=== PATIENT | female | born 2000 | race Caucasian/White ===

== ENCOUNTER 2020-05-05 15:55 | Emergency (ER) | payer OTHER ==
--- NOTE | 2020-05-05 16:26 | ED Physician Documentation ---
History of Present Illness - Stated complaint Stated Complaint: DIZZINESS - Chief complaint Chief Complaint: Neuro - History of Present Illness Timing: Prior to arrival - Additonal information Additional information: 20-year-old female presents to the emergency department for evaluation of near syncope. She reports that this afternoon she was sitting on the couch watching TV when she began to feel lightheaded and felt as though she was going to pass out. She denies that she had a sensation of the room spinning. During this event she did not have chest pain or dyspnea but she began to get very anxious and per her words I started to panic. She reports that the sensation of feeling like she was going to faint lasted about 20 seconds. She then proceeded to the bathroom where she looked in the mirror and felt that her lower lip and tongue had turned blue. She does report a history of SVT as a child. It sounds like she may have underwent a procedure in which an accessory pathway was ablated. She states that intermittently since then she has had occasional palpitations but none recently and none today. She reports that last week she had right upper chest pain that she thought was may be a pulled muscle. At present she denies pleuritic chest pain. She denies abdominal pain, nausea, vomiting or dysuria. Denies the possibility of as her is deployed. Patient denies any personal history of blood clots or cancer. No history of recent immobilization. She denies unilateral leg pain or calf swelling. She is not taking any routinely prescribed medications though she reports that she did have gestational hypertension when she was but was able to transition off antihypertensive rather quickly. She does admit that she does not regularly check her blood pressure or get annual screenings. Review of Systems Constitutional: reports: Reviewed and negative Eyes: reports: Reviewed and negative Ears: reports: Reviewed and negative Nose: reports: Reviewed and negative Throat: reports: Reviewed and negative Cardiac: denies: Chest pain / pressure, Palpitations, Pedal edema, Calf pain Respiratory: denies: Dyspnea, Cough, Hemoptysis GI: denies: Abdominal Pain, Abdominal Swelling, Nausea, Vomiting : denies: Dysuria, Frequency Skin: reports: Reviewed and negative Musculoskeletal: reports: Reviewed and negative Neurologic: reports: Near syncope. denies: Difficulty speaking, Syncope, Seizure, Altered mental status, Unresponsive, Headache, Head injury, LOC Psychiatric: reports: Reviewed and negative Endocrine: reports: Reviewed and negative PD PAST MEDICAL HISTORY - Allergies Allergies/Adverse Reactions: Allergies Allergy/AdvReac Type Severity Reaction Status Date / Time No Known Drug Allergies Allergy Verified 05/05/20 16:03 PD ED PE EXPANDED - General General: Alert, No acute distress, Anxious - Neck Neck: No: Adenopathy, Limited ROM - Cardiac Cardiac: Regular Rate, Tachy, Normal pulses, Radial strong equal, Pedal strong equal, Cap refill < 2 sec - Respiratory Respiratory: Clear to ausultation mika. No: Distress, Labored - Abdomen Abdomen: Normal Bowel sounds. No: Tender to palpation - Extremities Extremities: Normal - Neuro Neuro: Alert and Oriented X 3, CNII-XII intact, Normal gait, Normal finger nose, Normal speech. No: Cerebellar nl - GCS Eye Opening: Spontaneous Motor: Obeys Commands Verbal: Oriented Total: 15 Results - Vitals Vitals: Vital Signs - 24 hr 05/05/20 05/05/20 05/05/20 15:58 17:26 17:30 Temperature 36.6 C 37 C Heart Rate 110 H 105 H 105 H Respiratory 16 14 14 Rate Blood Pressure 145/100 H 167/96 H 167/96 H O2 Saturation 100 98 100 Oxygen O2 Source Room air - EKG (time done) 1622 Rate: Rate (enter#) (120) Rhythm: Sinus tachycardia [place]: Normal Intervals: Normal [place] QRS: Normal Ischemia: Normal ST segments Compare to prior EKG: Old EKG unavailable Computer interpretation: Agree with computer - Labs Labs: Laboratory Tests 05/05/20 05/05/20 05/05/20 16:28 16:35 16:35 WBC 9.0 RBC 5.14 Hgb 13.5 Hct 42.6 MCV 82.9 MCH 26.3 L MCHC 31.7 L RDW 14.1 Plt Count 309 MPV 9.1 Neut # (Auto) 6.5 Lymph # (Auto) 1.9 [place] # (Auto) 0.4 Eos # (Auto) 0.1 Baso # (Auto) 0.1 Absolute Nucleated RBC 0.00 Nucleated RBC % 0.0 D-Dimer Sodium 135 Potassium 3.2 L Chloride 101 Carbon Dioxide 22 Anion Gap 12.0 BUN 15 Creatinine 0.6 Estimated GFR (MDRD) 125 Glucose 160 H Calcium 9.2 Total Bilirubin 0.4 AST 20 ALT 16 Alkaline Phosphatase 90 Total Protein 8.4 H Albumin 4.0 Globulin 4.4 H Albumin/Globulin Ratio 0.9 L Lipase 25 Urine Color YELLOW Urine Clarity CLEAR Urine pH 5.5 Ur Specific [place] 1.025 Urine Protein NEGATIVE Urine Glucose (UA) NEGATIVE Urine Ketones NEGATIVE Urine Occult Blood NEGATIVE Urine Nitrite NEGATIVE Urine Bilirubin NEGATIVE Urine Urobilinogen 0.2 (NORMAL) Ur Leukocyte Esterase TRACE H Urine RBC 0-5 Urine WBC 4-5 Ur Squamous Epith Cells MANY Squamous H Urine Bacteria Many H Ur Microscopic Review INDICATED Urine Culture Comments NOT INDICATED Urine HCG, Qual NEGATIVE 05/05/20 16:35 WBC RBC Hgb Hct MCV MCH MCHC RDW Plt Count MPV Neut # (Auto) Lymph # (Auto) [place] # (Auto) Eos # (Auto) Baso # (Auto) Absolute Nucleated RBC Nucleated RBC % D-Dimer 230.9 Sodium Potassium Chloride Carbon Dioxide Anion Gap BUN Creatinine Estimated GFR (MDRD) Glucose Calcium Total Bilirubin AST ALT Alkaline Phosphatase Total Protein Albumin Globulin Albumin/Globulin Ratio Lipase Urine Color Urine Clarity Urine pH Ur Specific [place] Urine Protein Urine Glucose (UA) Urine Ketones Urine Occult Blood Urine Nitrite Urine Bilirubin Urine Urobilinogen Ur Leukocyte Esterase Urine RBC Urine WBC Ur Squamous Epith Cells Urine Bacteria Ur Microscopic Review Urine Culture Comments Urine HCG, Qual - Rads (name of study) cxr Radiology: Final report received (no acute process) PD MEDICAL DECISION MAKING - ED course Complexity details: reviewed results, re-evaluated patient, considered differential, d/w patient ED course: 20-year-old female presents to the emergency department with a near syncopal episode that occurred this afternoon when sitting on the couch. She does have a history of SVT as a child in which she had an accessory pathway ablated. However she denies that she had palpitations during the syncopal event. On initial presentation her heart rate was fairly elevated sinus rhythm 1 -08 04, however after period of time of rest in the emergency department her heart rate declined into the 90s on monitor. Her labs were essentially normal including a troponin and a nonelevated D-dimer. CXR unremarkable. Her urine showed no signs of infection. I have discussed this ED visit at length with the patient and she feels ready for discharge home. We do note of a moderate blood pressure elevation which patient is attributing to anxiety however I have encouraged her to follow-up with her primary care doctor to determine if she should be started on blood pressure medication Departure - Departure Disposition: Home, Self Care Clinical Impression: Near syncope, High blood pressure determined by examination Condition: Stable Record reviewed to determine appropriate education?: Yes Instructions: ED Near Syncope Unkn Comments: Jhoana your labs, EKG and chest x-ray today were all essentially normal. The only finding of significance today is that your blood pressure is moderately elevated. Please discuss this finding with your primary care doctor to determine if you should be initiated on blood pressure medications. If at any point you have any fainting episodes, chest pain or shortness of breath and please return immediately to the ER
[2020-05-05] MEDS ORDERED: SODIUM CHLORIDE 0.9% 1,000 ML IV STA (16:41)
[2020-05-05 16:42] LABS: BASOPHILS # (AUTO) 0.1 10^3/uL (0.0-0.1); BASOPHILS % (AUTO) 0.7 %; EOSINOPHILS # (AUTO) 0.1 10^3/uL (0.0-0.7); HGB - HEMOGLOBIN 13.5 g/dL (12.0-16.0); LYMPHOCYTES # (AUTO) 1.9 10^3/uL (1.5-3.5); LYMPHOCYTES % (AUTO) 20.7 %; MEAN CORPUSCULAR HEMOGLOBIN 26.3 pg (27.0-31.0); MEAN CORPUSCULAR HGB CONC 31.7 g/dL (32.0-36.0); MEAN CORPUSCULAR VOLUME 82.9 fL (81.0-99.0); MEAN PLATELET VOLUME 9.1 fL (7.9-10.8); MONOCYTES # (AUTO) 0.4 10^3/uL (0.0-1.0); MONOCYTES % (AUTO) 4.8 %; NEUTROPHILS # (AUTO) 6.5 10^3/uL (1.5-6.6); NEUTROPHILS % (AUTO) 72.1 %; PLT - PLATELET COUNT 309 10^3/uL (130-450); RED BLOOD COUNT 5.14 10^6/uL (4.20-5.40); RED CELL DISTRIBUTION WIDTH 14.1 % (12.0-15.0)
[2020-05-05 16:46] LABS: BILIRUBIN,URINE NEGATIVE (NEGATIVE); GLUCOSE, URINE (UA) NEGATIVE (NEGATIVE); KETONES,URINE (UA) NEGATIVE (NEGATIVE); LEUKOCYTE ESTERASE, URINE TRACE (NEGATIVE); NITRITE,URINE NEGATIVE (NEGATIVE); OCCULT BLOOD,URINE NEGATIVE (NEGATIVE); PH,URINE 5.5 PH (5.0-7.5); PROTEIN,URINE NEGATIVE (NEGATIVE); UROBILINOGEN,URINE 0.2 (NORMAL) E.U./dL (NORMAL)
--- NOTE | 2020-05-05 16:50 | XRAY Report ---
PROCEDURE: Chest 1 View X-Ray INDICATIONS: near syncope TECHNIQUE: One view of the chest was acquired. COMPARISON: None FINDINGS: Surgical changes and devices: None. Lungs and pleura: No pleural effusions or pneumothorax. Lungs are clear. Mediastinum: Mediastinal contours appear normal. Heart size is normal. Bones and chest wall: No suspicious bony lesions. Overlying soft tissues appear unremarkable. IMPRESSION: No acute cardiopulmonary pathology. Reviewed by: Earl Harrison MD on 05/05/2020 3:48 PM AKDT Approved by: Earl Harrison MD on 05/05/2020 3:48 PM AKDT Station ID: [id number]
[2020-05-05 16:53] LABS: BACTERIA,URINE Many /HPF (None Seen); CLARITY,URINE CLEAR (CLEAR); HCG UR QUAL NEGATIVE; RBC,URINE 0-5 /HPF (0-5); SQUAMOUS EPITHELIAL CELL,UR MANY Squamous (<= Few)
[2020-05-05 16:54] LABS: ALBUMIN/GLOBULIN RATIO 0.9 (1.0-2.2); BILIRUBIN,TOTAL 0.4 mg/dL (0.2-1.0); CALCIUM 9.2 mg/dL (8.5-10.3); CREATININE 0.6 mg/dL (0.4-1.0); TOTAL PROTEIN 8.4 g/dL (6.7-8.2)
[2020-05-05 18:00] VITALS: BP 159/90
== END 2020-05-05 18:12 | disposition home or self-care (01) ==
LOC: ED 15:55
DX: R55 Syncope and collapse (principal); R03.0 Elevated blood-pressure reading, without diagnosis of hypertension
CPT/HCPCS: 36415; 71045; 80053; 81001; 81003; 81025; 83690; 84484; 85025; 85379; 87086; 93005; 96360; 99284

== ENCOUNTER 2020-08-01 19:44 | Emergency (ER) | payer OTHER ==
--- NOTE | 2020-08-01 20:05 | ED Physician Documentation ---
PD HPI CHEST PAIN - Stated complaint Stated Complaint: CP/LEFT ARM ACHE - Chief complaint Chief Complaint: Cardiac - History obtained from History obtained from: Patient - Additional information Additional information: 20-year-old woman with history of childhood SVT status post ablation at age 4 presents with achy left upper chest pain radiating to the left arm since last night. It is worse if she bends her arm but not worse with exertion. No significant shortness of breath. No pedal edema or calf pain. No history of DVT or PE. She is not on control. No recent travel. Review of Systems Constitutional: denies: Fever, Chills Cardiac: denies: Palpitations, Pedal edema, Calf pain Respiratory: denies: Dyspnea, Cough, Hemoptysis, Wheezing PD PAST MEDICAL HISTORY - Past Medical History Cardiovascular: Other - Past Surgical History Cardiovascular: Other - Present Medications Home Medications: Ambulatory Orders Medication Instructions Recorded Confirmed Multivitamin 1 tab PO DAILY 08/01/20 08/01/20 - Allergies Allergies/Adverse Reactions: Allergies Allergy/AdvReac Type Severity Reaction Status Date / Time No Known Drug Allergies Allergy Verified 08/01/20 19:48 - Social History Does the pt smoke?: No Smoking Status: Never smoker Does the pt drink ETOH?: No Does the pt have substance abuse?: No PD ED PE NORMAL - Vitals Vital signs reviewed: Yes - General General: Alert and oriented X 3, No acute distress - HEENT HEENT: PERRL, EOMI - Neck Neck: Supple, no meningeal sign, No bony TTP - Cardiac Cardiac: RRR, No murmur - Respiratory Respiratory: No respiratory distress, Clear bilaterally - Abdomen Abdomen: Non tender - Derm Derm: Normal color, Warm and dry - Extremities Extremities: No edema, No calf tenderness / cord - Neuro Neuro: Alert and oriented X 3, Normal speech Results - Vitals Vitals: Vital Signs - 24 hr 08/01/20 08/01/20 19:48 20:44 Temperature 36.5 C 36.6 C Heart Rate 93 74 Respiratory 16 20 Rate Blood Pressure 144/100 H 125/82 H O2 Saturation 99 100 Oxygen O2 Source Room air - EKG (time done) 194 Rate: Rate (enter#) (93) Rhythm: NSR [place]: Normal Intervals: Normal [place] QRS: Normal Ischemia: Normal ST segments Computer interpretation: Agree with computer - Labs Labs: Laboratory Tests 08/01/20 08/01/20 08/01/20 20:05 20:05 20:05 WBC 9.7 RBC 4.89 Hgb 13.1 Hct 41.4 MCV 84.7 MCH 26.8 L MCHC 31.6 L RDW 14.2 Plt Count 313 MPV 9.0 Neut # (Auto) 6.5 Lymph # (Auto) 2.4 [place] # (Auto) 0.6 Eos # (Auto) 0.1 Baso # (Auto) 0.1 Absolute Nucleated RBC 0.00 Nucleated RBC % 0.0 Sodium 137 Potassium 3.9 Chloride 107 Carbon Dioxide 22 Anion Gap 8.0 BUN 13 Creatinine 0.7 Estimated GFR (MDRD) 105 Glucose 116 H Calcium 8.9 Total Bilirubin 0.5 AST 18 ALT 14 Alkaline Phosphatase 83 Troponin I High Sens 3.2 Total Protein 7.7 Albumin 4.0 Globulin 3.7 Albumin/Globulin Ratio 1.1 Lipase 25 PD MEDICAL DECISION MAKING - ED course ED course: HEART score 1 PERC neg Departure - Departure Disposition: 01 Home, Self Care Clinical Impression: Atypical chest pain Condition: Good Record reviewed to determine appropriate education?: Yes Instructions: ED Chest Pain Atypical Unkn Cause Comments: Nothing concerning on EKG or labs regarding this chest pain, that said I do recommend continuing efforts to obtain echocardiography as ordered by your supervisor dry cleaning in follow-up. Return for new or worsening symptoms. Discharge Date/Time: 08/01/20 20:48
[2020-08-01 20:15] LABS: BASOPHILS # (AUTO) 0.1 10^3/uL (0.0-0.1); BASOPHILS % (AUTO) 0.5 %; EOSINOPHILS # (AUTO) 0.1 10^3/uL (0.0-0.7); EOSINOPHILS % (AUTO) 1.3 %; HGB - HEMOGLOBIN 13.1 g/dL (12.0-16.0); LYMPHOCYTES # (AUTO) 2.4 10^3/uL (1.5-3.5); LYMPHOCYTES % (AUTO) 25.1 %; MEAN CORPUSCULAR HEMOGLOBIN 26.8 pg (27.0-31.0); MEAN CORPUSCULAR HGB CONC 31.6 g/dL (32.0-36.0); MEAN CORPUSCULAR VOLUME 84.7 fL (81.0-99.0); MONOCYTES # (AUTO) 0.6 10^3/uL (0.0-1.0); MONOCYTES % (AUTO) 6.2 %; NEUTROPHILS # (AUTO) 6.5 10^3/uL (1.5-6.6); NEUTROPHILS % (AUTO) 66.7 %; PLT - PLATELET COUNT 313 10^3/uL (130-450); RED BLOOD COUNT 4.89 10^6/uL (4.20-5.40); RED CELL DISTRIBUTION WIDTH 14.2 % (12.0-15.0); WHITE BLOOD COUNT 9.7 x10^3/uL (4.8-10.8)
[2020-08-01 20:28] LABS: ALBUMIN/GLOBULIN RATIO 1.1 (1.0-2.2); BILIRUBIN,TOTAL 0.5 mg/dL (0.2-1.0); CALCIUM 8.9 mg/dL (8.5-10.3); CREATININE 0.7 mg/dL (0.4-1.0); TOTAL PROTEIN 7.7 g/dL (6.7-8.2)
[2020-08-01 20:46] VITALS: BP 125/82
== END 2020-08-01 20:48 | disposition home or self-care (01) ==
LOC: ED 19:44
DX: R07.89 Other chest pain (principal); Z86.79 Personal history of other diseases of the circulatory system
CPT/HCPCS: 36415; 80053; 83690; 84484; 85025; 93005; 99284

== ENCOUNTER 2020-08-24 13:00 | Emergency (ER) | payer OTHER ==
[2020-08-24] MEDS ORDERED: SODIUM CHLORIDE 0.9% 1,000 ML IV STA (13:21)
--- NOTE | 2020-08-24 13:32 | ED Physician Documentation ---
PD HPI ABD PAIN - Stated complaint Stated Complaint: L ABDOMINAL PX - Chief complaint Chief Complaint: Abd Pain - History obtained from History obtained from: Patient - History of Present Illness Timing - onset: How many days ago (10) Timing - duration: Days (10) Timing - details: Gradual onset, Still present, Waxing and waning Quality: Cramping, Sharp, Pain Location: LLQ Radiation: Lower back Improved by: Other (nothing) Worsened by: Position, Palpation Associated symptoms: Diarrhea, Loss of appetite. No: Nausea, Vomiting, Hematemesis, Constipation Similar symptoms before: Has not had sx before Recently seen: Not recently seen - Additional information Additional information: 20 y/o female previously well has developed pain in the left lower quadrant of the abdomen that she describes as a cramping pain like gas. This was at first better with gas-x but now the patient has developed some funny diarrhea and persistence of pain. She has not had fever or vomiting with this. She does describe early satiety. Review of Systems Constitutional: denies: Fever Eyes: denies: Decreased vision Ears: denies: Ear pain Nose: denies: Congestion Throat: denies: Sore throat Cardiac: denies: Chest pain / pressure, Palpitations Respiratory: denies: Dyspnea, Cough GI: reports: Abdominal Pain, Diarrhea. denies: Nausea, Vomiting : denies: Dysuria, Frequency Skin: denies: Rash Musculoskeletal: denies: Neck pain, Back pain, Extremity pain Neurologic: denies: Generalized weakness, Focal weakness, Numbness PD PAST MEDICAL HISTORY - Past Medical History Cardiovascular: Other - Past Surgical History Cardiovascular: Other - Present Medications Home Medications: Ambulatory Orders Medication Instructions Recorded Confirmed Multivitamin 1 tab PO DAILY 08/01/20 08/24/20 Sulfamethox/Trimeth 800/160 1 each PO BID #10 tab 08/24/20 [Bactrim Ds] - Allergies Allergies/Adverse Reactions: Allergies Allergy/AdvReac Type Severity Reaction Status Date / Time No Known Drug Allergies Allergy Verified 08/24/20 13:04 - Social History Does the pt smoke?: No Smoking Status: Never smoker Does the pt drink ETOH?: No Does the pt have substance abuse?: No - Immunizations Immunizations are current?: Yes PD ED PE NORMAL - Vitals Vital signs reviewed: Yes (hypertensive ) - General General: Alert and oriented X 3, No acute distress, Well developed/nourished - HEENT HEENT: Atraumatic, PERRL, EOMI - Neck Neck: Supple, no meningeal sign, No bony TTP - Cardiac Cardiac: RRR, No murmur - Respiratory Respiratory: No respiratory distress, Clear bilaterally - Abdomen Abdomen: Normal bowel sounds, Soft, Non distended, No organomegaly, Other (obese with LLQ tenderness to palpation no garding referred tenderness or rebound tendernes. ) - Back Back: No CVA TTP, No spinal TTP - Derm Derm: Normal color, Warm and dry, No rash - Extremities Extremities: No deformity, No edema - Neuro Neuro: Alert and oriented X 3, trail maintenance worker 2-12 intact, No motor deficit, No sensory deficit, Normal speech Eye Opening: Spontaneous Motor: Obeys Commands Verbal: Oriented GCS Score: 15 - Psych Psych: Normal mood, Normal affect Results - Vitals Vitals: Vital Signs - 24 hr 08/24/20 13:05 Temperature 37 C Heart Rate 89 Respiratory 18 Rate Blood Pressure 153/118 H O2 Saturation 98 Oxygen O2 Source Room air - Labs Labs: Laboratory Tests 08/24/20 08/24/20 08/24/20 13:15 13:25 13:25 WBC 8.5 RBC 5.09 Hgb 13.7 Hct 42.8 MCV 84.1 MCH 26.9 L MCHC 32.0 RDW 13.8 Plt Count 336 MPV 8.7 Neut # (Auto) 5.5 Lymph # (Auto) 2.3 [place] # (Auto) 0.6 Eos # (Auto) 0.1 Baso # (Auto) 0.1 Absolute Nucleated RBC 0.00 Nucleated RBC % 0.0 Sodium 136 Potassium 4.0 Chloride 104 Carbon Dioxide 24 Anion Gap 8.0 BUN 11 Creatinine 0.5 Estimated GFR (MDRD) 154 Glucose 97 Calcium 9.3 Total Bilirubin 0.6 AST 19 ALT 15 Alkaline Phosphatase 89 Total Protein 8.2 Albumin 4.1 Globulin 4.1 Albumin/Globulin Ratio 1.0 Lipase 24 Urine Color YELLOW Urine Clarity [place] Urine pH 6.0 Ur Specific [place] 1.020 Urine Protein NEGATIVE Urine Glucose (UA) NEGATIVE Urine Ketones NEGATIVE Urine Occult Blood NEGATIVE Urine Nitrite NEGATIVE Urine Bilirubin NEGATIVE Urine Urobilinogen 0.2 (NORMAL) Ur Leukocyte Esterase MODERATE H Urine RBC None Seen Urine WBC >25 H Ur Squamous Epith Cells MANY Squamous H Urine Bacteria Few Ur Microscopic Review INDICATED Urine Culture Comments NOT INDICATED Urine HCG, Qual NEGATIVE - Rads (name of study) CT ab/pel w Radiology: Prelim report reviewed (Impression: 1. CT abdomen and pelvis without acute abnormalities. 2. Normal appendix. 3. Fat-containing umbilical hernia without acute inflammation), EMP read indepedently, See rad report PD MEDICAL DECISION MAKING - ED course Complexity details: reviewed old records, reviewed results, re-evaluated patient, considered differential, d/w patient ED course: 20-year-old female with left lower quadrant abdominal cramping for the past week has a normal-appearing CT scan of the abdomen pelvis and has greater than 25 white blood cells per high-power field in her urine. She indicates that she had a urinalysis done about a month ago and was placed on some nitrofurantoin and did not feel that there is any change in her cloudy urine at that time. She did not have symptoms specific to urinary tract infection at the time and this was found on the routine visit for laboratory evaluation. She now has symptoms and we will treat with Septra. Here in the emergency department she is given a liter of saline following her contrast CT scan. The urine did not make the grade for culture as there are too many squamous cells. We will do empiric treatment and the patient will need follow-up for repeat urinalysis to verify resolution of infection as she does not have symptoms that are specific to urinary tract Departure - Departure Disposition: 01 Home, Self Care Clinical Impression: Urinary tract infection Qualifiers: Urinary tract infection type: acute cystitis Hematuria presence: without hematuria Qualified Code(s): N30.00 - Acute cystitis without hematuria Condition: Stable Instructions: ED UTI Cystitis Female Follow-Up: Your, doctor [Other] Prescriptions: Sulfamethox/Trimeth 800/160 [Bactrim Ds] 1 each PO BID #10 tab Comments: We will not be able to culture the urine specimen we have today as her to meet squamous cells in it and the recommendation is to follow-up with your primary care doctor in 1 week for a repeat urinalysis to make certain that the infection has resolved.
[2020-08-24] MEDS ORDERED: IOVERSOL 320 100 ML VIAL IVP ONE ×2 (13:35→13:58)
[2020-08-24 13:36] LABS: BILIRUBIN,URINE NEGATIVE (NEGATIVE); GLUCOSE, URINE (UA) NEGATIVE (NEGATIVE); KETONES,URINE (UA) NEGATIVE (NEGATIVE); LEUKOCYTE ESTERASE, URINE MODERATE (NEGATIVE); NITRITE,URINE NEGATIVE (NEGATIVE); OCCULT BLOOD,URINE NEGATIVE (NEGATIVE); PROTEIN,URINE NEGATIVE (NEGATIVE); UROBILINOGEN,URINE 0.2 (NORMAL) E.U./dL (NORMAL)
[2020-08-24 13:37] LABS: BASOPHILS # (AUTO) 0.1 10^3/uL (0.0-0.1); BASOPHILS % (AUTO) 0.7 %; EOSINOPHILS # (AUTO) 0.1 10^3/uL (0.0-0.7); EOSINOPHILS % (AUTO) 1.1 %; HGB - HEMOGLOBIN 13.7 g/dL (12.0-16.0); LYMPHOCYTES # (AUTO) 2.3 10^3/uL (1.5-3.5); LYMPHOCYTES % (AUTO) 26.6 %; MEAN CORPUSCULAR HEMOGLOBIN 26.9 pg (27.0-31.0); MEAN CORPUSCULAR VOLUME 84.1 fL (81.0-99.0); MEAN PLATELET VOLUME 8.7 fL (7.9-10.8); MONOCYTES # (AUTO) 0.6 10^3/uL (0.0-1.0); MONOCYTES % (AUTO) 6.7 %; NEUTROPHILS # (AUTO) 5.5 10^3/uL (1.5-6.6); NEUTROPHILS % (AUTO) 64.7 %; PLT - PLATELET COUNT 336 10^3/uL (130-450); RED BLOOD COUNT 5.09 10^6/uL (4.20-5.40); RED CELL DISTRIBUTION WIDTH 13.8 % (12.0-15.0); WHITE BLOOD COUNT 8.5 x10^3/uL (4.8-10.8)
[2020-08-24 13:41] LABS: CLARITY,URINE HAZY (CLEAR); HCG UR QUAL NEGATIVE
[2020-08-24 13:42] LABS: BACTERIA,URINE Few /HPF (None Seen); RBC,URINE None Seen /HPF (0-5); SQUAMOUS EPITHELIAL CELL,UR MANY Squamous (<= Few)
[2020-08-24 13:49] LABS: ALBUMIN 4.1 g/dL (3.2-5.5); BILIRUBIN,TOTAL 0.6 mg/dL (0.2-1.0); CALCIUM 9.3 mg/dL (8.5-10.3); CREATININE 0.5 mg/dL (0.4-1.0); TOTAL PROTEIN 8.2 g/dL (6.7-8.2)
--- NOTE | 2020-08-24 14:15 | CT Report ---
PROCEDURE: Abdomen/Pelvis W INDICATIONS: LLQ pain CONTRAST: IV CONTRAST: Optiray 320 ml: 100 PO CONTRAST: *NO PO CONTRAST TECHNIQUE: After the administration of weight appropriate dose of intravenous contrast, 5 mm thick sections acqu ired from the diaphragms to the symphysis. 5 mm thick coronal and sagittal reformats were acquired. For radiation dose reduction, the following was used: automated exposure control, adjustment of mA and/or kV according to patient size. COMPARISON: None. FINDINGS: Image quality: Excellent. ABDOMEN: Lung bases: Lung bases are clear. Heart size is normal. Solid organs: Liver and spleen are normal in size and enhancement. Gallbladder is normal. No perich olecystic inflammatory changes. Biliary system is non dilated. Pancreas enhances normally. No adre nal nodules. Kidneys demonstrate normal size and enhancement, without hydronephrosis. Peritoneum and bowel: Bowel loops demonstrate normal wall thickness and caliber. Normal appendix. No free fluid or air. Nodes and vessels: No retroperitoneal or mesenteric adenopathy by size criteria. Aorta and inferior vena cava are normal in size. Miscellaneous: Small fat-containing umbilical hernia without acute inflammation. PELVIS: Genitourinary: Bladder wall thickness is normal. Miscellaneous: No inguinal hernias or adenopathy. Bones: No suspicious bony lesions. No acute vertebral body compression fractures. IMPRESSION: 1. CT abdomen and pelvis without acute abnormalities. 2. Normal appendix. 3. Fat-containing umbilical hernia without acute inflammation. Reviewed by: Ahsan Kraus MD on 08/24/2020 2:13 PM PST Approved by: Ahsan Kraus MD on 08/24/2020 2:13 PM PST Station ID: [id number]
[2020-08-24 14:53] VITALS: BP 155/100
== END 2020-08-24 14:52 | disposition home or self-care (01) ==
LOC: ED 13:00
DX: N30.00 Acute cystitis without hematuria (principal); R19.7 Diarrhea, unspecified; K42.9 Umbilical hernia without obstruction or gangrene
CPT/HCPCS: 36415; 74177; 80053; 81001; 81025; 83690; 85025; 99284; Q9967; 81003; 87086

== ENCOUNTER 2020-10-08 13:30 | Emergency (ER) | payer OTHER ==
[2020-10-08] MEDS ORDERED: LIDOCAINE-EPINEPH-TETRACAINE 3 ML SYRINGE TOP STA (13:51)
--- NOTE | 2020-10-08 13:53 | ED Physician Documentation ---
History of Present Illness - Stated complaint Stated Complaint: LIP LAC - Chief complaint Chief Complaint: Laceration - Additonal information Additional information: 20-year-old female presents emergency department for evaluation of an inner lower lip laceration sustained when her toddler accidentally head butted her. Tetanus is up-to-date. Bleeding is controlled with pressure. Laceration does not extend through the vermilion or to the external lip. Review of Systems Constitutional: reports: Reviewed and negative Eyes: reports: Reviewed and negative Ears: reports: Reviewed and negative Nose: reports: Reviewed and negative Throat: reports: Reviewed and negative Cardiac: reports: Reviewed and negative Respiratory: reports: Reviewed and negative GI: reports: Reviewed and negative Skin: reports: Laceration (s) PD PAST MEDICAL HISTORY - Past Medical History Cardiovascular: Other - Past Surgical History Cardiovascular: Other - Present Medications Home Medications: Ambulatory Orders Medication Instructions Recorded Confirmed Multivitamin 1 tab PO DAILY 08/01/20 10/08/20 - Allergies Allergies/Adverse Reactions: Allergies Allergy/AdvReac Type Severity Reaction Status Date / Time No Known Drug Allergies Allergy Verified 10/08/20 13:38 - Social History Does the pt smoke?: No Smoking Status: Never smoker Does the pt drink ETOH?: No Does the pt have substance abuse?: No - Immunizations Immunizations are current?: Yes PD ED PE EXPANDED - General General: Alert, No acute distress - HEENT HEENT: Lip laceration (1.5 cm lower lip midline vertical inner mucosal laceration with fatty tissue exposed) Results - Vitals Vitals: Vital Signs - 24 hr 10/08/20 13:36 Temperature 36.4 C L Heart Rate 70 Respiratory 20 Rate Blood Pressure 156/111 H O2 Saturation 96 Oxygen O2 Source Room air Procedures - Laceration (location) lip laceration Length in cm: 1.5 Wound type: Linear, Into subcut fat Neurovascular status: Sensory intact, Motor intact Anesthesia: LET Wound preparation: Irrigated copiously NS Skin layer closure: Interrupted (2), Other (absorbable vicryl 5.0) Other: Patient tolerated well, No complications, Tetanus UTD PD MEDICAL DECISION MAKING - ED course Complexity details: re-evaluated patient, d/w patient ED course: 18-year-old female presents emergency department with a 1.5 cm vertical lower lip inner mucosal laceration sustained when her child accidentally head butted her. Wound was easily closed with 2 absorbable sutures. Routine wound care emergent return precautions discussed Departure - Departure Disposition: 01 Home, Self Care Clinical Impression: Laceration of lip Qualifiers: Encounter type: initial encounter Qualified Code(s): S01.511A - Laceration without foreign body of lip, initial encounter Condition: Stable Record reviewed to determine appropriate education?: Yes Comments: Jhoana we closed the laceration with 2 absorbable sutures. These will fall out over the next 5 days. You can gently rinse your mouth with warm salt water twice daily. He states the lacerations are not likely to get infected however if you have erythema of the lip, milky drainage or increased pain or concerns of infection return immediately to the ER.
[2020-10-08 14:32] VITALS: BP 140/90
== END 2020-10-08 14:31 | disposition home or self-care (01) ==
LOC: ED 13:30
DX: S01.511A Laceration without foreign body of lip, initial encounter (principal); W50.0XXA Accidental hit or strike by another person, initial encounter
CPT/HCPCS: 12011; 99282

== ENCOUNTER 2021-12-05 08:00 | Outpatient (CLI) | payer OTHER ==
[2021-12-05 20:35] LABS: CHLAMYDIA TRACHOMATIS DNA NEGATIVE (NEGATIVE); NEISSERIA GONORRHOEAE DNA NEGATIVE (NEGATIVE)
[2021-12-05 22:06] LABS: BACTERIAL VAGINOSIS DNA NEGATIVE (NEGATIVE); CANDIDA GLABRATA DNA NEGATIVE (NEGATIVE); CANDIDA GROUP DNA NEGATIVE (NEGATIVE); CANDIDA KRUSEI DNA NEGATIVE (NEGATIVE); TRICHOMONAS VAGINALIS DNA NEGATIVE (NEGATIVE)
== END 2021-12-05 08:01 | disposition home or self-care (01) ==
LOC: LAB.N 08:00
PROVIDERS: ATTEND Physician Assistant Medical
DX: R30.0 Dysuria (principal)
CPT/HCPCS: 81514; 87086; 87491; 87591; 87661

== ENCOUNTER 2022-05-08 17:23 | Emergency (ER) | payer OTHER ==
--- OUTSIDE RECORDS SUMMARY | 2022-05-08 17:40 | EXTERNAL MEDICAL SUMMARY RPT | Continuity of Care Document ---
:2000 Author Organization [facility] Address [address] [place] [address] Phone Allergies No information. Encounters No information. Functional Status No information. Immunizations No information. Medications No information. Problems No information. Procedures No information. Results/Labs test date author facility value unit interpret ation Result panel 1 (unknown) (no (unknown) (unknown) (no value) (units (unk nown) date) unknown) (unknown) (no (unknown) (unknown) 05/07/22 (units (unkno wn) date) unknown) (unknown) (no (unknown) (unknown) [id number] (units (unkno wn) date) unknown) (unknown) (no (unknown) (unknown) Age/Sex: 22 / F (units (unknown) date) Date of Service: unknown) (unknown) (no (unknown) (unknown) Allergies (units (unkn own) date) unknown) (unknown) (no (unknown) (unknown) [facility] (units (unknown) date) Medicine unknown) (unknown) (no (unknown) (unknown) [place], [place] (units ( unknown) date) [id number] unknown) (unknown) (no (unknown) (unknown) Assessment + (units (u nknown) date) Plan unknown) (unknown) (no (unknown) (unknown) Attending Dr: (units ( unknown) date) Samantha Watson unknown) TREASURY DIRECTOR (unknown) (no (unknown) (unknown) control (units ( unknown) date) #21 tabs 11/25/20 unknown) [Rx Confirmed 05/07/22] (unknown) (no (unknown) (unknown) : 2000 (units (unknown) date) Acct:[id number] unknown) (unknown) (no (unknown) (unknown) Dept at (units (unkno wn) date) . unknown) (unknown) (no (unknown) (unknown) Documented By: (units (unknown) date) WalterSamantha unknown) [facility] 05/07/22 1525 (unknown) (no (unknown) (unknown) Draft (units (unkno wn) date) unknown) (unknown) (no (unknown) (unknown) Family Practice (units (unknown) date) Office Visit unknown) (unknown) (no (unknown) (unknown) Intake Note: (units (u nknown) date) unknown) (unknown) (no (unknown) (unknown) Intake performed (units (unknown) date) by: unknown) Vladimir Reyes (unknown) (no (unknown) (unknown) Intake (units (unkno wn) date) unknown) (unknown) (no (unknown) (unknown) Intake- Clincial (units (unknown) date) Staff unknown) (unknown) (no (unknown) (unknown) Loc: [facility] (units (unkno wn) date) unknown) (unknown) (no (unknown) (unknown) Medications (units (un known) date) unknown) (unknown) (no (unknown) (unknown) No Known Drug (units ( unknown) date) Allergies Allergy unknown) (Unverified 05/07/22 15:26) (unknown) (no (unknown) (unknown) Orders (units (unkno wn) date) unknown) (unknown) (no (unknown) (unknown) Orders: (units (unkno wn) date) unknown) (unknown) (no (unknown) (unknown) PFSH (units (unkno wn) date) unknown) (unknown) (no (unknown) (unknown) POC Strep screen (units (unknown) date) Group A Today unknown) J02.9 - Acute pharyngitis, unspecified (unknown) (no (unknown) (unknown) Patient: (units (unkno wn) date) Jhoana Berger L unknown) MR#: [id number] (unknown) (no (unknown) (unknown) Pt presents with (units (unknown) date) a sore throat for unknown) 2 days. Has concern for strep. Has had fever, (unknown) (no (unknown) (unknown) Reason For Visit (units (unknown) date) unknown) (unknown) (no (unknown) (unknown) Signed By: (units (unk nown) date) unknown) (unknown) (no (unknown) (unknown) Smoking Status: (units (unknown) date) Never smoker unknown) (unknown) (no (unknown) (unknown) This note may (units ( unknown) date) have been all or unknown) partially generated using voice recognition (unknown) (no (unknown) (unknown) Throat Culture (units (unknown) date) Today J02.9 - unknown) Acute pharyngitis, unspecified (unknown) (no (unknown) (unknown) Tobacco + (units (unkn own) date) Substance Use unknown) (unknown) (no (unknown) (unknown) Tobacco Status (units (unknown) date) unknown) (unknown) (no (unknown) (unknown) Visit Reasons: (units (unknown) date) S/T x 2D, concern unknown) for strep (unknown) (no (unknown) (unknown) body aches, and (units (unknown) date) chills. unknown) (unknown) (no (unknown) (unknown) have occurred. (units (unknown) date) If there are any unknown) questions, please contact the Medical Records (unknown) (no (unknown) (unknown) may occur. (units (unk nown) date) Occasional unknown) wrong-word or 'sound-alike' substitutions may have (unknown) (no (unknown) (unknown) norethindrone (units ( unknown) date) acetate 1.5 unknown) mg-ethinyl estradiol 30 mcg tablet 1 tab PO DAILY (unknown) (no (unknown) (unknown) occurred due to (units (unknown) date) the inherent unknown) limitations of voice recognition software. Please (unknown) (no (unknown) (unknown) read the note (units ( unknown) date) carefully and unknown) recognize, using context, where these substitutions (unknown) (no (unknown) (unknown) software. (units (unkn own) date) Although every unknown) effort is made to edit content, refractory worker errors Result panel 2 (unknown) (no (unknown) (unknown) (no value) (units (unk nown) date) unknown) (unknown) (no (unknown) (unknown) 05/07/22 (units (unkno wn) date) unknown) (unknown) (no (unknown) (unknown) 15:33 (units (unkno wn) date) unknown) (unknown) (no (unknown) (unknown) [id number] (units (unkno wn) date) unknown) (unknown) (no (unknown) (unknown) Age/Sex: 22 / F (units (unknown) date) Date of Service: unknown) (unknown) (no (unknown) (unknown) Allergies (units (unkn own) date) unknown) (unknown) (no (unknown) (unknown) [facility] (units (unknown) date) Medicine unknown) (unknown) (no (unknown) (unknown) [place], [place] (units ( unknown) date) [id number] unknown) (unknown) (no (unknown) (unknown) Assessment + (units (u nknown) date) Plan unknown) (unknown) (no (unknown) (unknown) Attending Dr: (units ( unknown) date) Samantha Watson unknown) TREASURY DIRECTOR (unknown) (no (unknown) (unknown) BMI 41.1 (units (unkno wn) date) unknown) (unknown) (no (unknown) (unknown) BP 134/90 (units (unkn own) date) unknown) (unknown) (no (unknown) (unknown) control (units ( unknown) date) #21 tabs 11/25/20 unknown) [Rx Confirmed 05/07/22] (unknown) (no (unknown) (unknown) Blood Pressure (units (unknown) date) Location Lt unknown) brachial (unknown) (no (unknown) (unknown) : 2000 (units (unknown) date) Acct:[id number] unknown) (unknown) (no (unknown) (unknown) Dept at (units (unkno wn) date) . unknown) (unknown) (no (unknown) (unknown) Documented By: (units (unknown) date) Samantha Watson unknown) TREASURY DIRECTOR 05/07/22 1525 (unknown) (no (unknown) (unknown) Draft (units (unkno wn) date) unknown) (unknown) (no (unknown) (unknown) Family Practice (units (unknown) date) Office Visit unknown) (unknown) (no (unknown) (unknown) Height 5 ft 6 in (units (unknown) date) unknown) (unknown) (no (unknown) (unknown) Intake Note: (units (u nknown) date) unknown) (unknown) (no (unknown) (unknown) Intake performed (units (unknown) date) by: unknown) Vladimir Reyes (unknown) (no (unknown) (unknown) Intake (units (unkno wn) date) unknown) (unknown) (no (unknown) (unknown) Intake- Clincial (units (unknown) date) Staff unknown) (unknown) (no (unknown) (unknown) Loc: [facility] (units (unkno wn) date) unknown) (unknown) (no (unknown) (unknown) Medications (units (un known) date) unknown) (unknown) (no (unknown) (unknown) No Known Drug (units ( unknown) date) Allergies Allergy unknown) (Unverified 05/07/22 15:26) (unknown) (no (unknown) (unknown) Orders (units (unkno wn) date) unknown) (unknown) (no (unknown) (unknown) Orders: (units (unkno wn) date) unknown) (unknown) (no (unknown) (unknown) Oxygen Delivery (units (unknown) date) Method room air unknown) (unknown) (no (unknown) (unknown) PFSH (units (unkno wn) date) unknown) (unknown) (no (unknown) (unknown) POC Strep screen (units (unknown) date) Group A Today unknown) J02.9 - Acute pharyngitis, unspecified (unknown) (no (unknown) (unknown) Patient: (units (unkno wn) date) Jhoana Berger unknown) MR#: [id number] (unknown) (no (unknown) (unknown) Position Sitting (units (unknown) date) unknown) (unknown) (no (unknown) (unknown) Pt presents with (units (unknown) date) a sore throat for unknown) 2 days. Has concern for strep. Has had fever, (unknown) (no (unknown) (unknown) Pulse 102 H (units (un known) date) unknown) (unknown) (no (unknown) (unknown) Pulse Oximetry (units (unknown) date) (%) 98 unknown) (unknown) (no (unknown) (unknown) Pulse Source (units (u nknown) date) Monitor unknown) (unknown) (no (unknown) (unknown) Reason For Visit (units (unknown) date) unknown) (unknown) (no (unknown) (unknown) Respiration 18 (units (unknown) date) unknown) (unknown) (no (unknown) (unknown) Signed By: (units (unk nown) date) unknown) (unknown) (no (unknown) (unknown) Smoking Status: (units (unknown) date) Never smoker unknown) (unknown) (no (unknown) (unknown) Temp 99.8 F H (units ( unknown) date) unknown) (unknown) (no (unknown) (unknown) Temp Source Oral (units (unknown) date) unknown) (unknown) (no (unknown) (unknown) This note may (units ( unknown) date) have been all or unknown) partially generated using voice recognition (unknown) (no (unknown) (unknown) Throat Culture (units (unknown) date) Today J02.9 - unknown) Acute pharyngitis, unspecified (unknown) (no (unknown) (unknown) Tobacco + (units (unkn own) date) Substance Use unknown) (unknown) (no (unknown) (unknown) Tobacco Status (units (unknown) date) unknown) (unknown) (no (unknown) (unknown) Visit Reasons: (units (unknown) date) S/T x 2D, concern unknown) for strep (unknown) (no (unknown) (unknown) Vitals (units (unkno wn) date) unknown) (unknown) (no (unknown) (unknown) Weight 254 lb 9 (units (unknown) date) oz unknown) (unknown) (no (unknown) (unknown) body aches, and (units (unknown) date) chills. unknown) (unknown) (no (unknown) (unknown) have occurred. (units (unknown) date) If there are any unknown) questions, please contact the Medical Records (unknown) (no (unknown) (unknown) may occur. (units (unk nown) date) Occasional unknown) wrong-word or 'sound-alike' substitutions may have (unknown) (no (unknown) (unknown) norethindrone (units ( unknown) date) acetate 1.5 unknown) mg-ethinyl estradiol 30 mcg tablet 1 tab PO DAILY (unknown) (no (unknown) (unknown) occurred due to (units (unknown) date) the inherent unknown) limitations of voice recognition software. Please (unknown) (no (unknown) (unknown) read the note (units ( unknown) date) carefully and unknown) recognize, using context, where these substitutions (unknown) (no (unknown) (unknown) software. (units (unkn own) date) Although every unknown) effort is made to edit content, refractory worker errors Result panel 3 (unknown) (no (unknown) (unknown) (no value) (units (unk nown) date) unknown) (unknown) (no (unknown) (unknown) 05/07/22 (units (unkno wn) date) unknown) (unknown) (no (unknown) (unknown) 15:33 (units (unkno wn) date) unknown) (unknown) (no (unknown) (unknown) [address] (units (unkno wn) date) unknown) (unknown) (no (unknown) (unknown) Age/Sex: 22 / F (units (unknown) date) Date of Service: unknown) (unknown) (no (unknown) (unknown) Allergies (units (unkn own) date) unknown) (unknown) (no (unknown) (unknown) [facility] (units (unknown) date) Medicine unknown) (unknown) (no (unknown) (unknown) [place], [place] (units ( unknown) date) [id number] unknown) (unknown) (no (unknown) (unknown) Assessment + (units (u nknown) date) Plan unknown) (unknown) (no (unknown) (unknown) Attending Dr: (units ( unknown) date) Samantha Watson unknown) TREASURY DIRECTOR (unknown) (no (unknown) (unknown) BMI 41.1 (units (unkno wn) date) unknown) (unknown) (no (unknown) (unknown) BP 134/90 (units (unkn own) date) unknown) (unknown) (no (unknown) (unknown) control (units ( unknown) date) #21 tabs 11/25/20 unknown) [Rx Confirmed 05/07/22] (unknown) (no (unknown) (unknown) Blood Pressure (units (unknown) date) Location Lt unknown) brachial (unknown) (no (unknown) (unknown) : 2000 (units (unknown) date) Acct:[id number] unknown) (unknown) (no (unknown) (unknown) Dept at (units (unkno wn) date) . unknown) (unknown) (no (unknown) (unknown) Documented By: (units (unknown) date) Samantha Watson unknown) [facility] 05/07/22 1525 (unknown) (no (unknown) (unknown) Draft (units (unkno wn) date) unknown) (unknown) (no (unknown) (unknown) Family Practice (units (unknown) date) Office Visit unknown) (unknown) (no (unknown) (unknown) Height 5 ft 6 in (units (unknown) date) unknown) (unknown) (no (unknown) (unknown) Intake Note: (units (u nknown) date) unknown) (unknown) (no (unknown) (unknown) Intake performed (units (unknown) date) by: unknown) Vladimir Reyes (unknown) (no (unknown) (unknown) Intake (units (unkno wn) date) unknown) (unknown) (no (unknown) (unknown) Intake- Clincial (units (unknown) date) Staff unknown) (unknown) (no (unknown) (unknown) Loc: [facility] (units (unkno wn) date) unknown) (unknown) (no (unknown) (unknown) Medications (units (un known) date) unknown) (unknown) (no (unknown) (unknown) No Known Drug (units ( unknown) date) Allergies Allergy unknown) (Unverified 05/07/22 15:26) (unknown) (no (unknown) (unknown) Orders (units (unkno wn) date) unknown) (unknown) (no (unknown) (unknown) Orders: (units (unkno wn) date) unknown) (unknown) (no (unknown) (unknown) Oxygen Delivery (units (unknown) date) Method room air unknown) (unknown) (no (unknown) (unknown) PFSH (units (unkno wn) date) unknown) (unknown) (no (unknown) (unknown) POC Strep A Test (units (unknown) date) Negative Last unknown) Edit by Vladimir Reyes MA on 05/07/22 15:41 (unknown) (no (unknown) (unknown) POC Strep A (units (un known) date) unknown) (unknown) (no (unknown) (unknown) POC Strep QC (units (u nknown) date) Last Edit by unknown) Vladimir Reyes MA on 05/07/22 15:41 (unknown) (no (unknown) (unknown) POC Strep screen (units (unknown) date) Group A Today unknown) J02.9 - Acute pharyngitis, unspecified (unknown) (no (unknown) (unknown) Patient: (units (unkno wn) date) Jhoana Berger L unknown) MR#: [id number] (unknown) (no (unknown) (unknown) Position Sitting (units (unknown) date) unknown) (unknown) (no (unknown) (unknown) Pt presents with (units (unknown) date) a sore throat for unknown) 2 days. Has concern for strep. Has had fever, (unknown) (no (unknown) (unknown) Pulse 102 H (units (un known) date) unknown) (unknown) (no (unknown) (unknown) Pulse Oximetry (units (unknown) date) (%) 98 unknown) (unknown) (no (unknown) (unknown) Pulse Source (units (u nknown) date) Monitor unknown) (unknown) (no (unknown) (unknown) Reason For Visit (units (unknown) date) unknown) (unknown) (no (unknown) (unknown) Respiration 18 (units (unknown) date) unknown) (unknown) (no (unknown) (unknown) Results (units (unkno wn) date) unknown) (unknown) (no (unknown) (unknown) Signed By: (units (unk nown) date) unknown) (unknown) (no (unknown) (unknown) Smoking Status: (units (unknown) date) Never smoker unknown) (unknown) (no (unknown) (unknown) Strep Expiration (units (unknown) date) Last Edit by unknown) Vladimir Reyes MA on 05/07/22 15:41 (unknown) (no (unknown) (unknown) Strep Lot# Last (units (unknown) date) Edit by Vladimir unknown) SHAQ Reyes on 05/07/22 15:41 (unknown) (no (unknown) (unknown) Temp 99.8 F H (units ( unknown) date) unknown) (unknown) (no (unknown) (unknown) Temp Source Oral (units (unknown) date) unknown) (unknown) (no (unknown) (unknown) This note may (units ( unknown) date) have been all or unknown) partially generated using voice recognition (unknown) (no (unknown) (unknown) Throat Culture (units (unknown) date) Today J02.9 - unknown) Acute pharyngitis, unspecified (unknown) (no (unknown) (unknown) Tobacco + (units (unkn own) date) Substance Use unknown) (unknown) (no (unknown) (unknown) Tobacco Status (units (unknown) date) unknown) (unknown) (no (unknown) (unknown) Visit Reasons: (units (unknown) date) S/T x 2D, concern unknown) for strep (unknown) (no (unknown) (unknown) Vitals (units (unkno wn) date) unknown) (unknown) (no (unknown) (unknown) Weight 254 lb 9 (units (unknown) date) oz unknown) (unknown) (no (unknown) (unknown) body aches, and (units (unknown) date) chills. unknown) (unknown) (no (unknown) (unknown) have occurred. (units (unknown) date) If there are any unknown) questions, please contact the Medical Records (unknown) (no (unknown) (unknown) may occur. (units (unk nown) date) Occasional unknown) wrong-word or 'sound-alike' substitutions may have (unknown) (no (unknown) (unknown) norethindrone (units ( unknown) date) acetate 1.5 unknown) mg-ethinyl estradiol 30 mcg tablet 1 tab PO DAILY (unknown) (no (unknown) (unknown) occurred due to (units (unknown) date) the inherent unknown) limitations of voice recognition software. Please (unknown) (no (unknown) (unknown) read the note (units ( unknown) date) carefully and unknown) recognize, using context, where these substitutions (unknown) (no (unknown) (unknown) software. (units (unkn own) date) Although every unknown) effort is made to edit content, refractory worker errors Result panel 4 (unknown) (no (unknown) (unknown) (no value) (units (unk nown) date) unknown) (unknown) (no (unknown) (unknown) (1) Sore throat: (units (unknown) date) unknown) (unknown) (no (unknown) (unknown) 05/07/22 1553 (units ( unknown) date) unknown) (unknown) (no (unknown) (unknown) 05/07/22 (units (unkno wn) date) unknown) (unknown) (no (unknown) (unknown) 15:33 (units (unkno wn) date) unknown) (unknown) (no (unknown) (unknown) [address] (units (unkno wn) date) unknown) (unknown) (no (unknown) (unknown) Age/Sex: 22 / F (units (unknown) date) Date of Service: unknown) (unknown) (no (unknown) (unknown) Allergies (units (unkn own) date) unknown) (unknown) (no (unknown) (unknown) [facility] (units (unknown) date) Medicine unknown) (unknown) (no (unknown) (unknown) [place] (units ( unknown) date) [id number] unknown) (unknown) (no (unknown) (unknown) Assessment + Plan (units (unknown) date) unknown) (unknown) (no (unknown) (unknown) Attending Dr: (units ( unknown) date) Samantha Watson unknown) TREASURY DIRECTOR (unknown) (no (unknown) (unknown) Auscultation: (units ( unknown) date) clear to unknown) auscultation bilaterally (unknown) (no (unknown) (unknown) BMI 41.1 (units (unkno wn) date) unknown) (unknown) (no (unknown) (unknown) BP 134/90 (units (unkn own) date) unknown) (unknown) (no (unknown) (unknown) control #21 (units (unknown) date) tabs 11/25/20 [Rx unknown) Confirmed 05/07/22] (unknown) (no (unknown) (unknown) Blood Pressure (units (unknown) date) Location Lt unknown) brachial (unknown) (no (unknown) (unknown) Chief Complaint (units (unknown) date) unknown) (unknown) (no (unknown) (unknown) Chief Complaint: (units (unknown) date) Sore throat unknown) (unknown) (no (unknown) (unknown) Const (units (unkno wn) date) unknown) (unknown) (no (unknown) (unknown) : 2000 (units (unknown) date) Acct:[id number] unknown) (unknown) (no (unknown) (unknown) Dept at (units (unkno wn) date) . unknown) (unknown) (no (unknown) (unknown) Details: (units (unkno wn) date) unknown) (unknown) (no (unknown) (unknown) Documented By: (units (unknown) date) Samantha Watson unknown) TREASURY DIRECTOR 05/07/22 1525 (unknown) (no (unknown) (unknown) Ears: hearing (units ( unknown) date) grossly normal unknown) bilaterally, external ears normal and TM's normal (unknown) (no (unknown) (unknown) Effort + (units (unkno wn) date) Inspection: normal unknown) respiratory effort (unknown) (no (unknown) (unknown) Exam Narrative (units (unknown) date) unknown) (unknown) (no (unknown) (unknown) Exam Narrative: (units (unknown) date) unknown) (unknown) (no (unknown) (unknown) Exam (units (unkno wn) date) unknown) (unknown) (no (unknown) (unknown) Eyes (units (unkno wn) date) unknown) (unknown) (no (unknown) (unknown) Family Practice (units (unknown) date) Office Visit unknown) (unknown) (no (unknown) (unknown) General: (units (unkno wn) date) appearance normal, unknown) both eyes and all related structures (unknown) (no (unknown) (unknown) General: (units (unkno wn) date) cooperative, unknown) healthy appearing, comfortable and no acute distress (unknown) (no (unknown) (unknown) General: no (units (un known) date) rashes or lesions unknown) noted (unknown) (no (unknown) (unknown) HENMT (units (unkno wn) date) unknown) (unknown) (no (unknown) (unknown) HPI and exam (units (u nknown) date) indicate need for unknown) point care strep testing which was negative in (unknown) (no (unknown) (unknown) HPI (units (unkno wn) date) unknown) (unknown) (no (unknown) (unknown) Head: normal to (units (unknown) date) inspection unknown) (unknown) (no (unknown) (unknown) Height 5 ft 6 in (units (unknown) date) unknown) (unknown) (no (unknown) (unknown) Intake Note: (units (u nknown) date) unknown) (unknown) (no (unknown) (unknown) Intake performed (units (unknown) date) by: Vladimir Reyes unknown) (unknown) (no (unknown) (unknown) Intake (units (unkno wn) date) unknown) (unknown) (no (unknown) (unknown) Intake- Clincial (units (unknown) date) Staff unknown) (unknown) (no (unknown) (unknown) Loc: [facility] (units (unkno wn) date) unknown) (unknown) (no (unknown) (unknown) Medications (units (un known) date) unknown) (unknown) (no (unknown) (unknown) Mouth: oral (units (un known) date) mucosae normal unknown) (unknown) (no (unknown) (unknown) Neck (units (unkno wn) date) unknown) (unknown) (no (unknown) (unknown) Neck: normal (units (u nknown) date) visual inspection, unknown) full ROM and no lymphadenopathy (unknown) (no (unknown) (unknown) No Known Drug (units ( unknown) date) Allergies Allergy unknown) (Unverified 05/07/22 15:26) (unknown) (no (unknown) (unknown) Nose: external (units (unknown) date) nose normal unknown) (unknown) (no (unknown) (unknown) Orders (units (unkno wn) date) unknown) (unknown) (no (unknown) (unknown) Orders: (units (unkno wn) date) unknown) (unknown) (no (unknown) (unknown) Oxygen Delivery (units (unknown) date) Method room air unknown) (unknown) (no (unknown) (unknown) PFSH (units (unkno wn) date) unknown) (unknown) (no (unknown) (unknown) POC Strep A Test (units (unknown) date) Negative Last Edit unknown) by Vladimir Reyes MA on 05/07/22 15:41 (unknown) (no (unknown) (unknown) POC Strep A (units (un known) date) unknown) (unknown) (no (unknown) (unknown) POC Strep QC Last (units (unknown) date) Edit by Vladimir unknown) SHAQ Reyes on 05/07/22 15:41 (unknown) (no (unknown) (unknown) POC Strep screen (units (unknown) date) Group A Today unknown) J02.9 - Acute pharyngitis, unspecified (unknown) (no (unknown) (unknown) Patient given at (units (unknown) date) home COVID-19 test unknown) to take if symptoms persist. Return to the (unknown) (no (unknown) (unknown) Patient has not (units (unknown) date) taken COVID-19 unknown) testing at home. She is alert, oriented and (unknown) (no (unknown) (unknown) Patient presents (units (unknown) date) to walk-in clinic unknown) with complaints of sore throat, chills, fever (unknown) (no (unknown) (unknown) Patient: (units (unkno wn) date) Jhoana Berger MR#: unknown) [id number] (unknown) (no (unknown) (unknown) Plan (units (unkno wn) date) unknown) (unknown) (no (unknown) (unknown) Position Sitting (units (unknown) date) unknown) (unknown) (no (unknown) (unknown) Pt presents with a (units (unknown) date) sore throat for 2 unknown) days. Has concern for strep. Has had fever, (unknown) (no (unknown) (unknown) Pulse 102 H (units (un known) date) unknown) (unknown) (no (unknown) (unknown) Pulse Oximetry (units (unknown) date) (%) 98 unknown) (unknown) (no (unknown) (unknown) Pulse Source (units (u nknown) date) Monitor unknown) (unknown) (no (unknown) (unknown) Reason For Visit (units (unknown) date) unknown) (unknown) (no (unknown) (unknown) Resp (units (unkno wn) date) unknown) (unknown) (no (unknown) (unknown) Respiration 18 (units (unknown) date) unknown) (unknown) (no (unknown) (unknown) Results (units (unkno wn) date) unknown) (unknown) (no (unknown) (unknown) Signed By: (units (unk nown) date) <Electronically unknown) signed by Samantha Watson> (unknown) (no (unknown) (unknown) Signed (units (unkno wn) date) unknown) (unknown) (no (unknown) (unknown) Skin (units (unkno wn) date) unknown) (unknown) (no (unknown) (unknown) Smoking Status: (units (unknown) date) Never smoker unknown) (unknown) (no (unknown) (unknown) Strep Expiration (units (unknown) date) Last Edit by unknown) Vladimir Reyes MA on 05/07/22 15:41 (unknown) (no (unknown) (unknown) Strep Lot# Last (units (unknown) date) Edit by Vladimir unknown) SHAQ Reyes on 05/07/22 15:41 (unknown) (no (unknown) (unknown) Temp 99.8 F H (units ( unknown) date) unknown) (unknown) (no (unknown) (unknown) Temp Source Oral (units (unknown) date) unknown) (unknown) (no (unknown) (unknown) This note may (units ( unknown) date) have been all or unknown) partially generated using voice recognition (unknown) (no (unknown) (unknown) Throat Culture (units (unknown) date) Today J02.9 - unknown) Acute pharyngitis, unspecified (unknown) (no (unknown) (unknown) Throat: posterior (units (unknown) date) oropharynx mild unknown) erythema, 3+ bilateral tonsils, no exudate (unknown) (no (unknown) (unknown) Tobacco + (units (unkn own) date) Substance Use unknown) (unknown) (no (unknown) (unknown) Tobacco Status (units (unknown) date) unknown) (unknown) (no (unknown) (unknown) Visit Reasons: (units (unknown) date) S/T x 2D, concern unknown) for strep (unknown) (no (unknown) (unknown) Vitals (units (unkno wn) date) unknown) (unknown) (no (unknown) (unknown) Weight 254 lb 9 (units (unknown) date) oz unknown) (unknown) (no (unknown) (unknown) and body aches (units (unknown) date) for 2 days. unknown) Patient states that she is able to eat and drink, (unknown) (no (unknown) (unknown) and is exposed to (units (unknown) date) young children. unknown) Patient denies cough, shortness of breath. (unknown) (no (unknown) (unknown) bilaterally (units (un known) date) unknown) (unknown) (no (unknown) (unknown) body aches, and (units (unknown) date) chills. unknown) (unknown) (no (unknown) (unknown) but throat is (units ( unknown) date) painful when unknown) swallowing. 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 We will (units (unknown) date) send a throat unknown) culture and treat accordingly. [id number] (unknown) (no (unknown) (unknown) comfortable and (units (unknown) date) able to talk in unknown) full sentences normal voice. (unknown) (no (unknown) (unknown) emergency (units (unkn own) date) department if unknown) symptoms worsen. Follow-up with primary care as needed (unknown) (no (unknown) (unknown) have occurred. If (units (unknown) date) there are any unknown) questions, please contact the Medical Records (unknown) (no (unknown) (unknown) may occur. (units (unk nown) date) Occasional unknown) wrong-word or 'sound-alike' substitutions may have (unknown) (no (unknown) (unknown) medication for (units (unknown) date) symptom relief. unknown) Tylenol/ibuprofen, warm saltwater gargles. (unknown) (no (unknown) (unknown) norethindrone (units ( unknown) date) acetate 1.5 unknown) mg-ethinyl estradiol 30 mcg tablet 1 tab PO DAILY (unknown) (no (unknown) (unknown) noted (units (unkno wn) date) unknown) (unknown) (no (unknown) (unknown) occurred due to (units (unknown) date) the inherent unknown) limitations of voice recognition software. Please (unknown) (no (unknown) (unknown) read the note (units ( unknown) date) carefully and unknown) recognize, using context, where these substitutions (unknown) (no (unknown) (unknown) software. (units (unkn own) date) Although every unknown) effort is made to edit content, refractory worker errors Result panel 5 (unknown) (no date) (unknown) (unknown) (no value) (units (un known) unknown) (unknown) (no date) (unknown) (unknown) Moderate (units (unkn own) growth - unknown) Mixed resident jahaira Social History No information. Vital Signs No information.
[2022-05-08 17:47] VITALS: BP 149/94
[2022-05-08 18:01] LABS: RAPID STREP SCREEN Negative (Negative)
[2022-05-08] MEDS ORDERED: diphenhydrAMINE ELIXIR 25 MG/10 ML UDC PO STA (18:17)
[2022-05-08] MEDS ORDERED: DEXAMETHASONE 10 MG/ML VIAL PO STA (18:17)
[2022-05-08] MEDS ORDERED: PENICILLIN VK 250 MG TABLET PO STA (18:17)
[2022-05-08] MEDS ORDERED: ACETAMINOPHEN 325 MG TABLET PO STA (18:17)
[2022-05-08] MEDS ORDERED: CHERRY SYRUP 10 ML UDC PO ONE (18:17)
--- NOTE | 2022-05-08 18:18 | ED Physician Documentation ---
PD HPI HEENT - Stated complaint Stated Complaint: THROAT PX/SWOLLEN - Chief complaint Chief Complaint: Heent - History obtained from History obtained from: Patient - History of Present Illness Timing - onset: How many days ago (3-4) Timing - duration: Days (3-4) Timing - details: Gradual onset, Still present Location: Throat (tonsils) Associated symptoms: Fever. No: Congestion, Rhinorrhea, Headache, Cough Similar symptoms before: Diagnosis (has been several years since strep throat.) Recently seen: Not recently seen Review of Systems Constitutional: reports: Fever Nose: denies: Rhinorrhea / runny nose, Congestion, Sinus pressure / pain Throat: reports: Sore throat, Swollen tonsils Respiratory: denies: Cough GI: denies: Nausea, Vomiting Skin: denies: Rash PD PAST MEDICAL HISTORY - Past Medical History Cardiovascular: Other - Past Surgical History Past Surgical History: No Cardiovascular: Other - Present Medications Home Medications: Ambulatory Orders Medication Instructions Recorded Confirmed Multivitamin 1 tab PO DAILY 08/01/20 05/08/22 Penicillin V Potassium 500 mg PO Q6HR #28 tablet 05/08/22 - Allergies Allergies/Adverse Reactions: Allergies Allergy/AdvReac Type Severity Reaction Status Date / Time No Known Drug Allergies Allergy Verified 10/08/20 13:38 - Social History Does the pt smoke?: No Smoking Status: Never smoker Does the pt drink ETOH?: No Does the pt have substance abuse?: No - Immunizations Immunizations are current?: Yes PD ED PE NORMAL - Vitals Vital signs reviewed: Yes - General General: Alert and oriented X 3, Well developed/nourished - HEENT HEENT: Ears normal, Dentition benign. No: Pharynx benign (tonsils enlarged bilaterally with redness and exudate. No peritonsillar edema. No palatine sores. ) - Neck Neck: Supple, no meningeal sign, Other (anterior adenopathy left more than right. ) - Cardiac Cardiac: RRR, No murmur - Respiratory Respiratory: Clear bilaterally - Derm Derm: Normal color, Warm and dry, No rash Results - Vitals Vitals: Vital Signs - 24 hr 05/08/22 17:46 Temperature 37.8 C Heart Rate 107 H Respiratory 18 Rate Blood Pressure 149/94 H O2 Saturation 98 Oxygen O2 Source Room air - Labs Labs: Laboratory Tests 05/08/22 17:44 Group A Strep Rapid Negative PD MEDICAL DECISION MAKING - ED course Complexity details: reviewed results, considered differential (has just sore throat and tonsils. Rapid strep neg but has 4/4 Centor so will empirically treat pending cultures at least. ), d/w patient Departure - Departure Disposition: 01 Home, Self Care Clinical Impression: Acute tonsillitis Qualifiers: Pharyngitis/tonsillitis etiology: unspecified etiology Qualified Code(s): J03.90 - Acute tonsillitis, unspecified Condition: Stable Record reviewed to determine appropriate education?: Yes Instructions: ED Strep Pharyngitis Poss Follow-Up: SHELDON FERGUSON NP [Primary Care Provider] - Prescriptions: Penicillin V Potassium 500 mg PO Q6HR #28 tablet Comments: Your rapid strep test for group A strep is negative. However this does not exclude other types of strep. The swab we did will now also start a throat culture. This will result in a couple of days. Meanwhile your exam is very suspicious for bacterial tonsillitis given the swelling and pustular tonsils with swollen neck glands fever and not really sound like a cold overall. I would treated empirically with penicillin presuming a bacterial cause at least pending the culture results. Continue with the ibuprofen 3 times daily. To that add Tylenol every 4-6 hours if needed for pain as well. Stay well-hydrated. You can also use Benadryl liquid 1 to 2 teaspoons (5 to 10 mL) if needed for throat pain. Hold it in your throat to act as a local topical numbing and then swallow. Recheck if not improving well over the next few days. We typically call with positive culture results or if any treatment modification is needed off of that. I transmitted your prescription to [facility] pharmacy in [place]. Discharge Date/Time: 05/08/22 18:29
== END 2022-05-08 18:29 | disposition home or self-care (01) ==
LOC: ED 17:23
DX: J03.90 Acute tonsillitis, unspecified (principal)
CPT/HCPCS: 87070; 87430; 99283; A9270

== ENCOUNTER 2022-06-18 21:36 | Emergency (ER) | payer OTHER ==
--- NOTE | 2022-06-18 22:40 | ED Physician Documentation ---
History of Present Illness - Stated complaint Stated Complaint: SOA,COUGH,CONGESTION, LOSS OF VOICE - Chief complaint Chief Complaint: Resp - History obtained from History obtained from: Patient - History of Present Illness Timing: How many days ago Pain level now: 0 Improved by: no ameliorating factors Worsened by: no exacerbating factors - Additonal information Additional information: c/o five days "flu symptoms" (per patient). She says she had fevers for the first three days of this illness but no fevers yesterday nor today. She has had increasingly frequent cough which has become productive of bloody sputum. Also has nasal/sinus congestion, intermittent dyspnea. She notes "cold sores" on left lateral aspect of upper lip. She also notes hoarse voice ("losing my voice" per patient) x 2 days. 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 Review of Systems Constitutional: reports: Fever Ears: denies: Ear pain Nose: reports: Rhinorrhea / runny nose, Congestion, Sinus pressure / pain Cardiac: reports: Reviewed and negative Respiratory: reports: Dyspnea, Cough, Hemoptysis. denies: Wheezing GI: reports: Reviewed and negative PD PAST MEDICAL HISTORY - Past Medical History Cardiovascular: Other - Past Surgical History Past Surgical History: No Cardiovascular: Other - Present Medications Home Medications: Ambulatory Orders Medication Instructions Recorded Confirmed Oseltamivir [Tamiflu] 75 mg PO BID #9 cap 06/19/22 - Allergies Allergies/Adverse Reactions: Allergies Allergy/AdvReac Type Severity Reaction Status Date / Time No Known Drug Allergies Allergy Verified 06/18/22 22:06 - Social History Does the pt smoke?: No Smoking Status: Never smoker Does the pt drink ETOH?: No Does the pt have substance abuse?: No - Immunizations Immunizations are current?: Yes PD ED PE NORMAL - Vitals Vital signs reviewed: Yes - General General: Alert and oriented X 3, No acute distress, Well developed/nourished - HEENT HEENT: Moist mucous membranes, Pharynx benign - Neck Neck: Supple, no meningeal sign - Cardiac Cardiac: RRR, No murmur - Respiratory Respiratory: No respiratory distress, Clear bilaterally Results - Vitals Vitals: Vital Signs - 24 hr 06/18/22 06/18/22 06/18/22 22:00 22:45 23:28 Temperature 37.0 C Heart Rate 87 84 72 Respiratory 18 18 16 Rate Blood Pressure 144/102 H 155/102 H 155/92 H O2 Saturation 100 99 100 06/19/22 00:05 Temperature 97.8 C H Heart Rate 81 Respiratory 16 Rate Blood Pressure 137/87 H O2 Saturation 100 Oxygen O2 Source Room air - Labs Labs: Laboratory Tests 06/18/22 22:24 Nasal Adenovirus (PCR) NOT DETECTED Nasal B. parapertussis DNA (PCR) NOT DETECTED Nasal Coronavir 229E PCR NOT DETECTED Nasal Coronavir HKU1 PCR NOT DETECTED Nasal Coronavir NL63 PCR NOT DETECTED Nasal Coronavir OC43 PCR NOT DETECTED Nasal Enterovir/Rhinovir PCR NOT DETECTED Nasal Influenza A H3 PCR DETECTED A Nasal Influenza B PCR NOT DETECTED Nasal Influenza A PCR NOT DETECTED Nasal Parainfluen 1 PCR NOT DETECTED Nasal Parainfluen 2 PCR NOT DETECTED Nasal Parainfluen 3 PCR NOT DETECTED Nasal Parainfluen 4 PCR NOT DETECTED Nasal RSV (PCR) NOT DETECTED Nasal B.pertussis DNA PCR NOT DETECTED Nasal C.pneumoniae (PCR) NOT DETECTED Lauro Human Metapneumo PCR NOT DETECTED Nasal M.pneumoniae (PCR) NOT DETECTED Nasal SARS-CoV-2 (PCR) NOT DETECTED PD MEDICAL DECISION MAKING - ED course Complexity details: reviewed results, re-evaluated patient, considered differential, d/w patient ED course: respiratory PCR panel is positive for influenza A, negative for other viruses tested. Her BMI puts her at higher risk of complications of influenza and thus I recommended oseltamivir which she agrees with, given first dose in ED and rx transmitted to her pharmacy of choice Departure - Departure Disposition: 01 Home, Self Care Clinical Impression: Influenza A Condition: Good Instructions: ED Flu, Medication: Tamiflu (Oseltamivir) Follow-Up: SHELDON FERGUSON NP [Primary Care Provider] - Prescriptions: Oseltamivir [Tamiflu] 75 mg PO BID #9 cap Comments: You tested positive for influenza A. You were given the first dose of an anti- viral medication which helps lower the severity of the symptoms and sometimes can shorten the course of symptoms, and the rest of the five-day course of the medication has been electronically submitted to [facility] pharmacy in [place]. Forms: Activity restrictions Discharge Date/Time: 06/19/22 00:10
[2022-06-18 23:17] LABS: B. PARAPERTUSSIS- RESP PCR PAN NOT DETECTED; B. PERTUSSIS- RESP PCR PANEL NOT DETECTED; C. PNEUMONIAE- RESP PCR PANEL NOT DETECTED; CORONAVIRUS 229E-RESP PCR NOT DETECTED; CORONAVIRUS HKU1-RESP PCR NOT DETECTED; CORONAVIRUS NL63-RESP PCR NOT DETECTED; CORONAVIRUS OC43-RESP PCR NOT DETECTED; HUMAN METAPNEUMOVIRUS NOT DETECTED; INFLUENZA A H3- RESP PCR PANEL DETECTED; INFLUENZA A- RESP PCR PANEL NOT DETECTED; INFLUENZA B - RESP PCR PANEL NOT DETECTED; M. PNEUMONIAE- RESP PCR PANEL NOT DETECTED; PARAINFLUENZA VIRUS 1 NOT DETECTED; PARAINFLUENZA VIRUS 2 NOT DETECTED; PARAINFLUENZA VIRUS 3 NOT DETECTED; PARAINFLUENZA VIRUS 4 NOT DETECTED; RHINOVIRUS/ENTEROVIRUS NOT DETECTED; RSV- RESP PCR PANEL NOT DETECTED; SARS-CoV-2 -RESP PCR PANEL NOT DETECTED
[2022-06-18] MEDS ORDERED: NITROFURANTOIN MACRO 100 MG CAPSULE PO STA (23:44)
[2022-06-19 00:06] VITALS: BP 137/87
[2022-06-19] MEDS ORDERED: OSELTAMIVIR 75 MG CAPSULE PO STA (00:07)
== END 2022-06-19 00:10 | disposition home or self-care (01) ==
LOC: ED 21:36
DX: J10.1 Influenza due to other identified influenza virus with other respiratory manifestations (principal); Z20.822 Contact with and (suspected) exposure to COVID-19
CPT/HCPCS: 87633; 99283; A9270

== ENCOUNTER 2023-02-22 20:09 | Emergency (ER) | payer OTHER ==
[2023-02-22 20:23] VITALS: BP 150/102; O2SAT 100
--- NOTE | 2023-02-22 20:35 | ED Physician Documentation ---
PD HPI HEADACHE - Stated complaint Stated Complaint: GLF, HEADACHE - Chief complaint Chief Complaint: Trauma Hd/Nk - History obtained from History obtained from: Patient - Additional information Additional information: She was in the shower about 24 hours ago and slipped and fell and hit her head on the edge. There was no loss of consciousness. Today she has a mild headache and light sensitivity. No nausea or vomiting. No anticoagulation. PD PAST MEDICAL HISTORY - Past Medical History Cardiovascular: Other - Past Surgical History Past Surgical History: No Cardiovascular: Other - Present Medications Home Medications: Ambulatory Orders Medication Instructions Recorded Confirmed No Known Home Medications 02/22/23 02/22/23 - Allergies Allergies/Adverse Reactions: Allergies Allergy/AdvReac Type Severity Reaction Status Date / Time No Known Drug Allergies Allergy Verified 02/22/23 20:18 - Social History Does the pt smoke?: No Smoking Status: Never smoker Does the pt drink ETOH?: No Does the pt have substance abuse?: No - Immunizations Immunizations are current?: Yes - POLST Patient has POLST: No PD ED PE NORMAL - Vitals Vital signs reviewed: Yes - General General: Alert and oriented X 3, No acute distress - HEENT HEENT: PERRL, EOMI - Neck Neck: Supple, no meningeal sign, No bony TTP - Back Back: No CVA TTP, No spinal TTP - Derm Derm: Normal color, Warm and dry - Extremities Extremities: Other (There is an ecchymosis to the posteromedial right elbow but without corresponding bony tenderness or limited range of motion.) - Neuro Neuro: Alert and oriented X 3, therapist respiratory 2-12 intact, No motor deficit, No sensory deficit, Normal speech Eye Opening: Spontaneous Motor: Obeys Commands Verbal: Oriented GCS Score: 15 - Psych Psych: Normal mood, Normal affect Results - Vitals Vitals: Vital Signs - 24 hr 02/22/23 20:13 Temperature 36.3 C L Heart Rate 80 Respiratory 18 Rate Blood Pressure 150/102 H O2 Saturation 100 Oxygen O2 Source Room air PD Medical Decision Making - ED course ED course: 23-year-old with mild headache, no nausea, no loss of consciousness about 24 hours after head injury. I do not believe that advanced imaging is necessary she was given signs and symptoms that she can safely watch out for at home. Departure - Departure Disposition: 01 Home, Self Care Clinical Impression: Head injury Qualifiers: Encounter type: initial encounter Qualified Code(s): S09.90XA - Unspecified injury of head, initial encounter Condition: Good Record reviewed to determine appropriate education?: Yes Instructions: ED Head Injury Closed Comments: As discussed, given the timeframe, nearly 24 hours since the injury, and normal exam and lack of other concerning historical findings, it is very unlikely for you to have a significant/serious head injury. That said if the headache were to become severe or you were to start vomiting we would want to reevaluate you at that time.
== END 2023-02-22 20:43 | disposition home or self-care (01) ==
LOC: ED 20:09
DX: S09.90XA Unspecified injury of head, initial encounter (principal); W01.198A Fall on same level from slipping, tripping and stumbling with subsequent striking against other object, initial encounter; Y93.F1 Activity, caregiving, bathing
CPT/HCPCS: 99281; 99283

== ENCOUNTER 2023-05-14 08:00 | Outpatient (CLI) | payer OTHER ==
[2023-05-14 23:20] LABS: CHLAMYDIA TRACHOMATIS DNA NEGATIVE (NEGATIVE); NEISSERIA GONORRHOEAE DNA NEGATIVE (NEGATIVE)
[2023-05-15 03:23] LABS: BACTERIAL VAGINOSIS DNA NEGATIVE (NEGATIVE); CANDIDA GLABRATA DNA NEGATIVE (NEGATIVE); CANDIDA GROUP DNA NEGATIVE (NEGATIVE); CANDIDA KRUSEI DNA NEGATIVE (NEGATIVE); TRICHOMONAS VAGINALIS DNA NEGATIVE (NEGATIVE)
== END 2023-05-14 23:59 | disposition home or self-care (01) ==
LOC: LAB.N 08:00
PROVIDERS: ATTEND Nurse Practitioner
DX: N89.8 Other specified noninflammatory disorders of vagina (principal)
CPT/HCPCS: 81514; 87491; 87591; 87661

== ENCOUNTER 2023-05-15 08:00 | Outpatient (CLI) | payer OTHER | END 2023-05-15 23:59 | disposition home or self-care (01) | LOC: LAB.N 08:00 | PROVIDERS: ATTEND Nurse Practitioner | DX: R30.0 Dysuria (principal) | CPT/HCPCS: 87086 ==